=== PATIENT | male | born 1945 | race Asian ===

== ENCOUNTER → 2016-07-14 | Outpatient (CLI) | payer MEDICARE, OTHER ==
[~2016-07-14] MED LIST: IOVERSOL 350 MG/ML 100 ML VIAL ONE
== END | disposition home or self-care (01) ==
LOC: RADMN 08:18
PROVIDERS: ATTEND Internal Medicine
DX: K76.89 Other specified diseases of liver (principal)
CPT/HCPCS: 74178; Q9967

== ENCOUNTER → 2016-07-27 | Outpatient (CLI) | payer MEDICARE, OTHER ==
[2016-08-03 22:06] LABS: HEPATITIS C GENOTYPE 1a
== END | disposition home or self-care (01) ==
LOC: LABPV 09:50
PROVIDERS: ATTEND Internal Medicine
DX: R94.5 Abnormal results of liver function studies (principal); R16.0 Hepatomegaly, not elsewhere classified
CPT/HCPCS: 82105; 87902

== ENCOUNTER 2016-10-27 05:11 | Emergency (ER) | payer MEDICARE, OTHER ==
[~2016-10-27] VITALS: Ht 160 cm; Wt 49.0 kg
[2016-10-27] MEDS ORDERED: HYDR2 PO (05:21)
[2016-10-27] MEDS ORDERED: HTN PO (05:21)
[2016-10-27 05:52] LABS: HEMATOCRIT 38.2 % (41-53); HEMOGLOBIN 13.2 g/dL (13.5-17.5); MEAN CORPUSCULAR HEMOGLOBIN 35.6 pg (26.0-34.0); MEAN CORPUSCULAR HGB CONC 34.7 G/dL (31.0-37.0); MEAN CORPUSCULAR VOLUME 103 fL (80-100); PLATELET COUNT (AUTO) 152 K/uL (150-450); RED BLOOD CELL COUNT(AUTO) 3.72 MIL/uL (4.50-5.90); RED CELL DISTRIBUTION WIDTH 16.7 % (11.5-14.5); WHITE BLOOD COUNT (AUTO) 6.3 K/uL (4.5-11.0)
[2016-10-27 06:01] LABS: APPEARANCE,URINE CLEAR (CLEAR); GLUCOSE, URINE (UA) NEGATIVE (NEGATIVE); KETONES,URINE NEGATIVE (NEGATIVE); LEUKOCYTE ESTERASE ,URINE NEGATIVE (NEGATIVE); OCCULT BLOOD,URINE NEGATIVE (NEGATIVE); PROTEIN,URINE NEGATIVE (NEGATIVE)
[2016-10-27 06:06] LABS: ADD UA MICROSCOPIC NO
[2016-10-27 06:10] LABS: CALCIUM, TOTAL 9.9 mg/dL (8.8-10.5); CREATININE 1.76 mg/dL (0.60-1.30); POTASSIUM 5.8 mmol/L (3.5-5.1)
[2016-10-27 06:11] LABS: EOSINOPHILS % (MANUAL) 2 % (1-6); LYMPHOCYTES % (MANUAL) 31 % (22-44); TOTAL CELLS COUNTED 100
[2016-10-27] MEDS ORDERED: MORPHINE SULFATE 4 MG/ML SYRINGE IM ONE (06:15)
[2016-10-27] MEDS ORDERED: ONDANSETRON HCL 4 MG/2 ML VIAL IM ONE (06:15)
[2016-10-27 06:16] LABS: ALBUMIN 1.7 g/dL (3.4-5.0); TOTAL PROTEIN, SERUM 7.7 g/dL (6.4-8.2)
[2016-10-27 07:11] VITALS: BP 128/74
== END 2016-10-27 07:27 | disposition home or self-care (01) ==
LOC: EMS 05:12
DX: R10.11 Right upper quadrant pain (principal); C22.9 Malignant neoplasm of liver, not specified as primary or secondary; D64.9 Anemia, unspecified; I10 Essential (primary) hypertension
CPT/HCPCS: 36415; 80053; 81003; 83690; 84484; 85025; 93005; 96372; 99285; J2270; J2405

== ENCOUNTER 2016-11-05 14:56 | Emergency (ER) | payer MEDICARE, OTHER ==
[~2016-11-05] VITALS: Ht 160 cm; Wt 50.0 kg
[~2016-11-05 14:56] MED LIST changes: +HTN PO; +HYDR2 PO; -IOVERSOL 350 MG/ML 100 ML VIAL ONE
[2016-11-05 16:42] LABS: HEMATOCRIT 39.4 % (41-53); HEMOGLOBIN 13.7 g/dL (13.5-17.5); MEAN CORPUSCULAR HEMOGLOBIN 36.7 pg (26.0-34.0); MEAN CORPUSCULAR HGB CONC 34.7 G/dL (31.0-37.0); MEAN CORPUSCULAR VOLUME 106 fL (80-100); PLATELET COUNT (AUTO) 161 K/uL (150-450); RED BLOOD CELL COUNT(AUTO) 3.73 MIL/uL (4.50-5.90); RED CELL DISTRIBUTION WIDTH 17.8 % (11.5-14.5); WHITE BLOOD COUNT (AUTO) 7.2 K/uL (4.5-11.0)
[2016-11-05] MEDS ORDERED: ONDANSETRON HCL 4 MG/2 ML VIAL IVP ONE ×2 (16:45→18:30)
[2016-11-05 16:52] LABS: CREATININE 1.69 mg/dL (0.60-1.30); POTASSIUM 5.6 mmol/L (3.5-5.1)
[2016-11-05 16:58] LABS: ALBUMIN 1.7 g/dL (3.4-5.0); BAND NEUTROPHILS % (MANUAL) 3 % (1-5); BILIRUBIN,TOTAL 5.9 mg/dL (0.1-1.0); EOSINOPHILS % (MANUAL) 1 % (1-6); LYMPHOCYTES % (MANUAL) 15 % (22-44); MYELOCYTES % 1 % (0-0); RBC MORPHOLOGY COMMENT ABNORMAL R; TOTAL CELLS COUNTED 100; TOTAL PROTEIN, SERUM 7.7 g/dL (6.4-8.2)
[2016-11-05] MEDS ORDERED: ONDANSETRON HCL 4 MG/2 ML VIAL IM ONE (17:45)
[2016-11-05] MEDS ORDERED: MORPHINE SULFATE 2 MG/ML SYRINGE IM ONE (17:45)
[2016-11-05] MEDS ORDERED: MORPHINE SULFATE 2 MG/ML SYRINGE IVP ONE (18:15)
[2016-11-05 18:35] VITALS: BP 124/66
== END 2016-11-05 19:13 | disposition home or self-care (01) ==
LOC: EMS 14:58
DX: R10.11 Right upper quadrant pain (principal); C22.9 Malignant neoplasm of liver, not specified as primary or secondary; E87.5 Hyperkalemia; K59.00 Constipation, unspecified; I10 Essential (primary) hypertension; Z51.11 Encounter for antineoplastic chemotherapy
CPT/HCPCS: 36415; 80053; 83690; 84484; 85025; 93005; 96374; 96375; 96376; 99285; J2270; J2405